=== PATIENT | female | born 1985 | race American Indian/Alaskan Native ===

== ENCOUNTER 2017-02-06 17:44 | Outpatient (CLI) | payer MEDICAID, OTHER ==
[2017-02-06 18:19] VITALS: BP 100/57
[2017-02-06] MEDS ORDERED: LACTATED RINGERS 500 ML IV ONE (18:50)
--- NOTE | 2017-02-06 19:27 | Event Note ---
Date: 02/06/17 (pt arrived via EMS with c/o bleeding) Pt is a Pt had c/s with first delivery due to bleeding. There was only a small dot of old blood on a tissue pt had put on when EMS arrived at her home. US done EDC 05-20-17 No evidence of abruption. Pt will be d/c home with reactive strip. No further evidence of bleeding Pt given list of providers She is aware we do not offer Pt encouraged to be on pelvic rest, hydration, she will come back to Triage with any further bleeding
--- NOTE | 2017-02-07 10:32 | Ultrasound Report ---
COMPLETE OB ULTRASOUND: Second trimester bleeding. Gestation: [place] Position: Cephalic FABRICIO = 21.1 cm Placenta: Anterior Placental Grade: 1 Heart Rate: 118 BPM Cervical length: 4.1 cm (Normal > 3 cm) X It is too early for a anatomical survey The following are not demonstrated due to maternal body habitus or lie: BPD: 6.2 cm = 25 w 0 d HC: 22.9 cm = 25 w 0 d AC: 21.8 cm = 26 w 2 d FL: 4.6 cm = 25 w 0 d HC/AC Ratio: 1.05 Cephalic Index: 82.1 Estimated Weight: 836 grams Clinical age = 22 w 3 d EDC: 06/09/17 US Gest. Age = 25 w 2 d EDC: 05/20/17 Impression: No gestational abnormalities noted. No evidence of placental abnormality.
== END 2017-02-06 19:45 | disposition home or self-care (01) ==
LOC: TRG 17:44
PROVIDERS: ATTEND Obstetrics & Gynecology
DX: O99.332 Smoking (tobacco) complicating pregnancy, second trimester (principal); O46.92 Antepartum hemorrhage, unspecified, second trimester; O47.02 False labor before 37 completed weeks of gestation, second trimester; Z3A.22 22 weeks gestation of pregnancy
CPT/HCPCS: 59025; 76816

== ENCOUNTER 2018-02-24 16:57 | Emergency (ER) | payer OTHER ==
[2018-02-24] MEDS ORDERED: NACL 0.9% 1000 ML 1,000 ML IV ONE ×2 (18:02→19:15)
--- NOTE | 2018-02-24 18:08 | Emergency Department Report ---
ED HPI - General Chief complaint: Vaginal Bleeding Stated complaint: POSS MISCARRIAGE Time Seen by Provider: 02/24/18 17:33 Source: patient, EMS Mode of arrival: Stretcher Limitations: No Limitations - History of Present Illness Initial comments: 32-year-old female with no significant past medical history presents to the hospital complaining of miscarriage. LMP 01/24/2018 and patient did not know she was . Today she developed vaginal bleeding and passed a fetus and blood clots. She continues to have suprapubic cramping moderate to severe abdominal pain. This is now her eighth , she has 6 living children, and one child that after premature six-month delivery one month after last year. - Related Data Previous Rx's Medication Instructions Recorded Last Taken Type Acetaminophen/Codeine [Tylenol #3] 1 tab PO Q8H PRN #15 tablet 05/01/15 Unknown Rx Ibuprofen [Motrin] 800 mg PO Q8HR PRN #21 tablet 05/01/15 Unknown Rx Penicillin Vk [Veetids TAB] 500 mg PO QID #40 tablet 05/01/15 Unknown Rx Sulfamethoxazole/Trimethoprim 1 each PO BID #14 tablet 02/25/18 Unknown Rx [Bactrim DS TAB] Allergies Allergy/AdvReac Type Severity Reaction Status Date / Time No Known Allergies Allergy Verified 05/01/15 11:56 ED Review of Systems ROS: Stated complaint: POSS MISCARRIAGE Other details as noted in HPI Comment: All other systems reviewed and negative ED Past Medical Hx - Past Medical History Hx Hypertension: No Hx Diabetes: No Hx Deep Vein Thrombosis: No Hx Renal Disease: No Hx Sickle Cell Disease: No Hx Seizures: No Hx Asthma: No Hx HIV: No - Surgical History Additional Surgical History: 2003 - Social History Smoking Status: Former Smoker Substance Use Type: None - Medications Home Medications: Home Medications Medication Instructions Recorded Confirmed Last Taken Type Acetaminophen/Codeine [Tylenol #3] 1 tab PO Q8H PRN #15 tablet 05/01/15 Unknown Rx Ibuprofen [Motrin] 800 mg PO Q8HR PRN #21 tablet 05/01/15 05/28/15 Unknown Rx Penicillin Vk [Veetids TAB] 500 mg PO QID #40 tablet 05/01/15 05/28/15 Unknown Rx Sulfamethoxazole/Trimethoprim 1 each PO BID #14 tablet 02/25/18 Unknown Rx [Bactrim DS TAB] ED Physical Exam - General Limitations: No Limitations - Other Other exam information: General: No limitations, patient is alert in no acute distress Head exam: Atraumatic, normocephalic Eyes exam: Normal appearance ENT: Moist mucous membrane, normal oropharynx Neck exam: Normal inspection, full range of motion Respiratory exam: Clear to auscultation bilateral, no wheezes, rales, crackles Cardiovascular: Normal rate and rhythm, normal heart sounds Abdomen: Soft, nondistended, suprapubic tenderness, with normal bowel sounds, no rebound, or guarding : Blood clots and moved from vaginal vault with no significant residual bleeding from cervical os. There is an umbilical cord exiting the cervix into the vaginal canal. Extremity: Full range of motion normal inspection no deformity Back: Normal Inspection, full range of motion, no tenderness Neurologic: Alert, oriented x3, cranial nerves intact, no motor or sensory deficit Psychiatric: normal affect, normal mood Skin: Warm, dry, intact ED Course Vital Signs 02/24/18 02/24/18 02/24/18 17:22 18:00 18:10 Temperature 98.0 F Pulse Rate 96 H Respiratory 20 16 Rate Blood Pressure 113/69 100/58 O2 Sat by Pulse 98 98 99 Oximetry 02/24/18 02/24/18 02/24/18 18:20 18:40 19:00 Temperature Pulse Rate 82 80 82 Respiratory 13 15 25 H Rate Blood Pressure 91/54 111/50 94/57 O2 Sat by Pulse 95 100 100 Oximetry 02/24/18 02/24/18 02/24/18 20:16 20:20 20:40 Temperature Pulse Rate 92 H 76 Respiratory 15 17 Rate Blood Pressure 94/57 98/60 93/47 O2 Sat by Pulse 99 97 97 Oximetry 02/24/18 02/24/18 02/24/18 21:00 21:15 21:20 Temperature Pulse Rate 96 H 75 Respiratory 20 18 13 Rate Blood Pressure 94/57 93/50 O2 Sat by Pulse 98 96 Oximetry 02/24/18 02/24/18 02/24/18 21:40 22:00 22:20 Temperature Pulse Rate 77 78 70 Respiratory 9 L 15 20 Rate Blood Pressure 90/50 103/66 103/66 O2 Sat by Pulse 99 99 98 Oximetry 02/24/18 02/24/18 22:40 23:00 Temperature Pulse Rate 81 Respiratory 23 Rate Blood Pressure 103/35 103/35 O2 Sat by Pulse 97 Oximetry - Reevaluation(s) Reevaluation #1: 02/24/18 19:15 Hypotension improves with normal saline bolus. Morphine and Zofran ordered. Additional normal saline ordered - Consultations Consultation #1: 02/24/18 19:28 newspaper vendor provider August with [facility] changer fixer paged, awaiting call back 02/24/18 19:[address] ayala after us to discuss if d and c is necessary ED Medical Decision Making - Lab Data Result diagrams: 02/24/18 17:59 Lab Results 02/24/18 02/24/18 02/24/18 Range/Units 17:59 17:59 18:02 WBC 11.0 (4.5-11.0) K/mm3 RBC 3.58 L (3.65-5.03) M/mm3 Hgb 10.5 (10.1-14.3) gm/dl Hct 29.6 L (30.3-42.9) % MCV 83 (79-97) fl MCH 29 (28-32) pg MCHC 36 H (30-34) % RDW 14.8 (13.2-15.2) % Plt Count 269 (140-440) K/mm3 Lymph % (Auto) 23.2 (13.4-35.0) % Pine % (Auto) 5.6 (0.0-7.3) % Eos % (Auto) 2.1 (0.0-4.3) % Baso % (Auto) 0.5 (0.0-1.8) % Lymph # 2.5 (1.2-5.4) K/mm3 Pine # 0.6 (0.0-0.8) K/mm3 Eos # 0.2 (0.0-0.4) K/mm3 Baso # 0.1 (0.0-0.1) K/mm3 Seg Neutrophils % 68.6 (40.0-70.0) % Seg Neutrophils # 7.5 (1.8-7.7) K/mm3 HCG, Quant 22721 H (0-4) mIU/mL Blood Type B POSITIVE Antibody Screen Negative - Radiology Data Radiology results: report reviewed FINAL REPORT EXAM: US OB lt; = 14 WEEKS FETUS HISTORY: vag bleeding + home preg test TECHNIQUE: Real-time sonography was performed of the pelvis transabdominally and endovaginally. Images are submitted for interpretation. PRIORS: None. FINDINGS: The uterus appears normal measuring 14.1 x 9.1 x 10.6 cm. There is no evidence of intrauterine gestation. The endometrial stripe appears normal measuring 6 mm. Small nabothian cyst is noted in the cervix. The right ovary appears normal measuring 2.4 x 1.4 x 1.9 cm. The left adnexa was scanned. The left ovary was not seen. There are no abnormal adnexal masses. There is no free pelvic fluid. IMPRESSION: 1. An intrauterine has not been confirmed and ectopic has not been excluded. Close clinical follow-up, serial quantitative beta HCG levels and follow-up ultrasound recommended. 2. The left ovary was not seen. FINAL REPORT EXAM: US OB TRANSVAGINAL HISTORY: vag bleeding + home preg test TECHNIQUE: Real-time sonography was performed of the pelvis transabdominally and endovaginally. Images are submitted for interpretation. PRIORS: None. FINDINGS: The uterus appears normal measuring 14.1 x 9.1 x 10.6 cm. There is no evidence of intrauterine gestation. The endometrial stripe appears normal measuring 6 mm. Small nabothian cyst is noted in the cervix. The right ovary appears normal measuring 2.4 x 1.4 x 1.9 cm. The left adnexa was scanned. The left ovary was not seen. There are no abnormal adnexal masses. There is no free pelvic fluid. IMPRESSION: 1. An intrauterine has not been confirmed and ectopic has not been excluded. Close clinical follow-up, serial quantitative beta HCG levels and follow-up ultrasound recommended. 2. The left ovary was not seen. - Medical Decision Making Miscarriage with passage of fetus Rh+ program unnecessary I attempted to discuss case with city constable [facility]IVET PASSER physician with ultrasound results pending. I was connected with nurse practitioner/nipple threader who stated that case need to be discussed with city constable , Dr. Ayala According to answering service they did not have a contact number for Dr. Ayala. Patient was signed out to Dr. Gavin to contact city constable physician regarding patient management after ultrasound report results - Differential Diagnosis miscarriage, ectopic, anemia, Critical Care Time: No Critical care attestation.: If time is entered above; I have spent that time in minutes in the direct care of this critically ill patient, excluding procedure time. ED Disposition Clinical Impression: Incomplete miscarriage Disposition: - LEFT AGAINST MED ADVICE Is pt being admited?: No Condition: Stable Instructions: Spontaneous Miscarriage (ED) Referrals: ALICIA LIMON MD [Staff Physician] - [facility] Forms: AMA Form Time of Disposition: 20:00 (s/o to Dr gavin)
[2018-02-24 18:24] LABS: Basophils # (Auto) 0.1 K/mm3 (0.0-0.1); Basophils % (Auto) 0.5 % (0.0-1.8); Eosinophils # (Auto) 0.2 K/mm3 (0.0-0.4); Eosinophils % (Auto) 2.1 % (0.0-4.3); Hematocrit 29.6 % (30.3-42.9); Hemoglobin 10.5 gm/dl (10.1-14.3); Lymphocytes # (Auto) 2.5 K/mm3 (1.2-5.4); Lymphocytes % (Auto) 23.2 % (13.4-35.0); Mean Corpuscular HGB Conc 36 % (30-34); Mean Corpuscular Hemoglobin 29 pg (28-32); Mean Corpuscular Volume 83 fl (79-97); Monocytes # (Auto) 0.6 K/mm3 (0.0-0.8); Monocytes % (Auto) 5.6 % (0.0-7.3); Platelet Count 269 K/mm3 (140-440); Red Blood Count 3.58 M/mm3 (3.65-5.03); Red Cell Distribution Width 14.8 % (13.2-15.2)
[2018-02-24] MEDS ORDERED: ZOFRAN IV ONE (19:15)
[2018-02-24] MEDS ORDERED: MORPHINE IV ONE (19:15)
[2018-02-24] MEDS ORDERED: TORADOL IV ONE (21:00)
[2018-02-24] MEDS ORDERED: TORADOL ONE (21:01)
--- NOTE | 2018-02-24 23:14 | Emergency Department Report ---
Blank Doc - Documentation Documentation: Received signout from Dr. Corrales to follow up on OB ultrasound for patient with complete miscarriage. I have contacted A I asked radiology 3 times, he at least have no report. Patient states she has to leave at this time, otherwise she will have no ride home, and she needs to take care of her other children. Patient informed of risks of leaving with medical advice, including retained products of conception, hemorrhage, infection, . Informed patient that we need ultrasound results prior to speaking to the physician on-call, as it is unknown whether she will require D&C versus medication administration for retained products. Patient understands the risks. States she has no one available to watch her children other than her mother who has to be at work soon. Pt states she will return to ED in the morning after she sends her children to school. AMA form signed.
--- NOTE | 2018-02-24 23:22 | Ultrasound Report ---
FINAL REPORT EXAM: US OB < = 14 WEEKS FETUS HISTORY: vag bleeding + home preg test TECHNIQUE: Real-time sonography was performed of the pelvis transabdominally and endovaginally. Images are submitted for interpretation. PRIORS: None. FINDINGS: The uterus appears normal measuring 14.1 x 9.1 x 10.6 cm. There is no evidence of intrauterine gestation. The endometrial stripe appears normal measuring 6 mm. Small nabothian cyst is noted in the cervix. The right ovary appears normal measuring 2.4 x 1.4 x 1.9 cm. The left adnexa was scanned. The left ovary was not seen. There are no abnormal adnexal masses. There is no free pelvic fluid. IMPRESSION: 1. An intrauterine has not been confirmed and ectopic has not been excluded. Close clinical follow-up, serial quantitative beta HCG levels and follow-up ultrasound recommended. 2. The left ovary was not seen.
[2018-02-25 00:23] VITALS: BP 103/35
== END 2018-02-24 23:10 | disposition left against medical advice (07) ==
LOC: ED 16:57
DX: O03.4 Incomplete spontaneous abortion without complication (principal); Z87.891 Personal history of nicotine dependence; Z3A.00 Weeks of gestation of pregnancy not specified
CPT/HCPCS: 36415; 76801; 76817; 84702; 85025; 86850; 86900; 86901; 88305; 96374; 99284; J1885; J7030

== ENCOUNTER 2018-02-25 08:08 | Emergency (ER) | payer OTHER ==
[2018-02-25 08:35] VITALS: BP 106/53
[2018-02-25 08:50] LABS: Basophils % (Auto) 0.3 % (0.0-1.8); Eosinophils # (Auto) 0.2 K/mm3 (0.0-0.4); Eosinophils % (Auto) 2.1 % (0.0-4.3); Hematocrit 29.1 % (30.3-42.9); Hemoglobin 9.7 gm/dl (10.1-14.3); Lymphocytes # (Auto) 2.6 K/mm3 (1.2-5.4); Lymphocytes % (Auto) 22.1 % (13.4-35.0); Mean Corpuscular HGB Conc 33 % (30-34); Mean Corpuscular Hemoglobin 28 pg (28-32); Mean Corpuscular Volume 84 fl (79-97); Monocytes # (Auto) 0.5 K/mm3 (0.0-0.8); Monocytes % (Auto) 4.7 % (0.0-7.3); Platelet Count 253 K/mm3 (140-440); Red Blood Count 3.46 M/mm3 (3.65-5.03); Red Cell Distribution Width 15.2 % (13.2-15.2)
--- NOTE | 2018-02-25 10:24 | Emergency Department Report ---
ED HPI - General Chief complaint: Abdominal Pain Stated complaint: MISCARRIED/FOLLOW UP Time Seen by Provider: 02/25/18 09:18 Source: patient Mode of arrival: Ambulatory Limitations: No Limitations - History of Present Illness Initial comments: This is a 32-year-old female that presents with miscarriage. Patient stated she was seen yesterday and was diagnosed with a miscarriage and left AGAINST MEDICAL ADVICE. Patient stated she was diagnosed with "umbilical cord in the vagina canal". Patient left prior to getting results of ultrasound. Patient currently denies any vaginal bleeding. Patient denies any abdominal pain or tenderness. Patient denies any fever, chills, nausea, vomiting, chest pain, shortness of breath, headache or stiff neck. Patient stated this is her eighth and has 6 living children. Patient denies any drug allergies. MD Complaint: vaginal bleeding Radiation: none Severity scale (0 -10): 0 Consistency: constant Improves with: none Worsens with: none Associated symptoms: vaginal bleeding. denies: nausea/vomiting, vaginal discharge, abdominal pain, dysuria, headache, vision changes, malaise, dysparuenia, rash, seizure, shortness of breath, syncope, weakness Vaginal bleeding: light Pre-nicolas care: none - Related Data Previous Rx's Medication Instructions Recorded Last Taken Type Acetaminophen/Codeine [Tylenol #3] 1 tab PO Q8H PRN #15 tablet 05/01/15 Unknown Rx Ibuprofen [Motrin] 800 mg PO Q8HR PRN #21 tablet 05/01/15 Unknown Rx Penicillin Vk [Veetids TAB] 500 mg PO QID #40 tablet 05/01/15 Unknown Rx Sulfamethoxazole/Trimethoprim 1 each PO BID #14 tablet 02/25/18 Unknown Rx [Bactrim DS TAB] Allergies Allergy/AdvReac Type Severity Reaction Status Date / Time No Known Allergies Allergy Verified 05/01/15 11:56 ED Review of Systems ROS: Stated complaint: MISCARRIED/FOLLOW UP Other details as noted in HPI Constitutional: denies: chills, fever Eyes: denies: eye pain, eye discharge, vision change ENT: denies: ear pain, throat pain Respiratory: denies: cough, shortness of breath, wheezing Cardiovascular: denies: chest pain, palpitations Endocrine: no symptoms reported Gastrointestinal: denies: abdominal pain, nausea, diarrhea Genitourinary: abnormal menses. denies: urgency, dysuria, discharge Musculoskeletal: denies: back pain, joint swelling, arthralgia Skin: denies: rash, lesions Neurological: denies: headache, weakness, paresthesias Psychiatric: denies: anxiety, depression Hematological/Lymphatic: denies: easy bleeding, easy bruising ED Past Medical Hx - Past Medical History Previous Medical History?: No Hx Hypertension: No Hx Diabetes: No Hx Deep Vein Thrombosis: No Hx Renal Disease: No Hx Sickle Cell Disease: No Hx Seizures: No Hx Asthma: No Hx HIV: No - Surgical History Past Surgical History?: Yes Additional Surgical History: 2003 - Social History Smoking Status: Current Every Day Smoker Substance Use Type: None - Medications Home Medications: Home Medications Medication Instructions Recorded Confirmed Last Taken Type Acetaminophen/Codeine [Tylenol #3] 1 tab PO Q8H PRN #15 tablet 05/01/15 Unknown Rx Ibuprofen [Motrin] 800 mg PO Q8HR PRN #21 tablet 05/01/15 05/28/15 Unknown Rx Penicillin Vk [Veetids TAB] 500 mg PO QID #40 tablet 05/01/15 05/28/15 Unknown Rx Sulfamethoxazole/Trimethoprim 1 each PO BID #14 tablet 02/25/18 Unknown Rx [Bactrim DS TAB] ED Physical Exam - General Limitations: No Limitations General appearance: alert, in no apparent distress - Head Head exam: Present: atraumatic, normocephalic - Eye Eye exam: Present: normal appearance - ENT ENT exam: Present: mucous membranes moist - Neck Neck exam: Present: normal inspection - Respiratory Respiratory exam: Present: normal lung sounds bilaterally. Absent: respiratory distress - Cardiovascular Cardiovascular Exam: Present: regular rate, normal rhythm. Absent: systolic murmur, diastolic murmur, rubs, gallop - GI/Abdominal GI/Abdominal exam: Present: soft, normal bowel sounds - Extremities Exam Extremities exam: Present: normal inspection - Back Exam Back exam: Present: normal inspection - Neurological Exam Neurological exam: Present: alert, oriented X3 - Psychiatric Psychiatric exam: Present: normal affect, normal mood - Skin Skin exam: Present: warm, dry, intact, normal color. Absent: rash ED Course Vital Signs 02/25/18 08:30 Temperature 98.7 F Pulse Rate 76 Respiratory 18 Rate Blood Pressure 106/53 O2 Sat by Pulse 100 Oximetry - Reevaluation(s) Reevaluation #1: 02/25/18 10:23 Patient is speaking in full sentences with no signs of distress. - Consultations Consultation #1: 02/25/18 10:23 Patient has been consulted with Dr. Carl ([facility]) about patient history, physical exam, and labs/US report and examined patient and agrees to ED plan of care with discharge to follow-up. ED Medical Decision Making - Lab Data Result diagrams: 02/25/18 08:41 - Medical Decision Making this is a 32-year-old female that presents with mischarge. Patient is stable and was examined by me and Dr. Carl. As per Dr. Carl, she performed a bedside procedure to remove what she believes "umbilical cord" and instructed patient to follow-up in 3-[address] Carl sent product of conception to pathology. US and labs obtained. I will start patient on empirical Bactrim. At time of discharge, the patient does not seem toxic or ill in appearance. No acute signs of distress noted. Patient agrees to discharge treatment plan of care. No further questions noted by the patient. Critical care attestation.: If time is entered above; I have spent that time in minutes in the direct care of this critically ill patient, excluding procedure time. ED Disposition Clinical Impression: Spontaneous miscarriage Disposition: DC-01 TO HOME OR SELFCARE Is pt being admited?: No Does the pt Need Aspirin: No Condition: Stable Instructions: Spontaneous Miscarriage (ED) Additional Instructions: Follow-up with a OBGYN doctor in 3-5 days or if symptoms worsen and continue return to emergency room as soon as possible. Prescriptions: Sulfamethoxazole/Trimethoprim [Bactrim DS TAB] 1 each PO BID #14 tablet Referrals: PRIMARY CARE, [Primary Care Provider] - 3-5 Days DEBORAH CARL MD [Staff Physician] - 3-5 Days [facility] [Provider Group] - 3-5 Days Forms: Work/School Release Form(ED)
--- NOTE | 2018-02-25 11:26 | Event Note ---
Date: 02/25/18 This is a 32-year-old female 8 para 7 who presented to ED yesterday stating she passed an approximately 3 month old fetus at home. Patient left in the middle of her assessment and presents today stating her assessment needs to be completed. She was told that the umbilical cord is in the vagina. She has no further complaints except some occasional cramping. On exam no bleeding was noted. Tissue was protruding from the cervix that was removed and sent to pathology. No bleeding was noted cervix appeared closed. Labs from yesterday as well as today and the ultrasound from yesterday was reviewed. Patient is stable will allow home with follow-up in our office in 2 days to follow her quantitative hCG levels. Will rule out any potential remaining tissue passed spontaneously. If levels continue to rise or any bleeding or pain occurs will then consider D&C. Plan of care was excessively discussed patient. Questions were encouraged and answered, patient voiced understanding.
[2018-02-25 15:57] LABS: Bacteria,Urine 1+ /HPF (Negative); Bilirubin,Urine NEG (Negative); Blood,Urine NEG (Negative); Color,Urine Yellow (Yellow); Mucus,Urine FEW /HPF; Protein,Urine <15 mg/dL mg/dL (Negative); Urobilinogen,Urine < 2.0 mg/dL (<2.0)
== END 2018-02-25 11:45 | disposition home or self-care (01) ==
LOC: ED 08:08
DX: O03.9 Complete or unspecified spontaneous abortion without complication (principal); F17.200 Nicotine dependence, unspecified, uncomplicated; Z3A.00 Weeks of gestation of pregnancy not specified
CPT/HCPCS: 36415; 81001; 84702; 85025; 88305; 99283

== ENCOUNTER 2018-03-06 18:00 | Observation (INO) | payer OTHER ==
[2018-03-06] MEDS ORDERED: NACL 0.9% 1000 ML 1,000 ML IV ONE ×2 (18:25→19:43)
[2018-03-06 19:09] LABS: Basophils % (Auto) 0.5 % (0.0-1.8); Eosinophils # (Auto) 0.1 K/mm3 (0.0-0.4); Eosinophils % (Auto) 1.2 % (0.0-4.3); Hematocrit 22.9 % (30.3-42.9); Hemoglobin 7.7 gm/dl (10.1-14.3); Lymphocytes % (Auto) 20.1 % (13.4-35.0); Mean Corpuscular HGB Conc 34 % (30-34); Mean Corpuscular Hemoglobin 28 pg (28-32); Mean Corpuscular Volume 83 fl (79-97); Monocytes # (Auto) 0.8 K/mm3 (0.0-0.8); Monocytes % (Auto) 7.9 % (0.0-7.3); Platelet Count 362 K/mm3 (140-440); Red Blood Count 2.76 M/mm3 (3.65-5.03); Red Cell Distribution Width 14.3 % (13.2-15.2)
[2018-03-06] MEDS ORDERED: MORPHINE ONE (19:12)
[2018-03-06] MEDS ORDERED: MORPHINE IV ONE (19:13)
[2018-03-06 19:20] LABS: BUN/Creatinine Ratio 18; Blood Urea Nitrogen 9 mg/dL (7-17); Calcium 7.8 mg/dL (8.4-10.2); Hemolysis Index 1
--- NOTE | 2018-03-06 19:34 | Emergency Department Report ---
ED HPI - General Chief complaint: Vaginal Bleeding Stated complaint: VAGINAL BLEEDING Time Seen by Provider: 03/06/18 18:18 Source: patient, EMS Mode of arrival: Stretcher Limitations: No Limitations - History of Present Illness Initial comments: Patient is a 32-year-old female who is having heavy vaginal bleeding. Patient was seen here on 02/24/2018 after having a miscarriage at home. Patient passed a fetus at home brought in and was sent to pathology. Patient had ultrasound done at that time that showed no IUP and her Quant was 36 ,000. Patient returned on February 25 quad had actually elevated to 38,000 and patient was seen by CLINICAL DOCUMENTATION IMPROVEMENT SPECIALIST at that time. Patient was not bleeding at the time therefore the decision to do it and additional ultrasound or D&C was held. Patient was to follow with Dr. Carl's office but did not. Patient states on February 27 she started having return of some vaginal bleeding. Patient states that the bleeding was as heavy as normal. However the bleeding persisted and become heavier and heavier to forward today she is passing large clots of blood. Patient states she has some mild lightheadedness. Patient denies any fevers chills nausea vomiting. Patient does have some 6 out of 10 suprapubic crampiness. - Related Data Previous Rx's Medication Instructions Recorded Last Taken Type Acetaminophen/Codeine [Tylenol #3] 1 tab PO Q8H PRN #15 tablet 05/01/15 Unknown Rx Penicillin Vk [Veetids TAB] 500 mg PO QID #40 tablet 05/01/15 Unknown Rx Sulfamethoxazole/Trimethoprim 1 each PO BID #14 tablet 02/25/18 Unknown Rx [Bactrim DS TAB] Ibuprofen [Motrin 800 MG tab] 800 mg PO Q8HR PRN #21 tablet 03/06/18 Unknown Rx Allergies Allergy/AdvReac Type Severity Reaction Status Date / Time No Known Allergies Allergy Verified 05/01/15 11:56 ED Review of Systems ROS: Stated complaint: VAGINAL BLEEDING Other details as noted in HPI Comment: All other systems reviewed and negative ED Past Medical Hx - Past Medical History Hx Hypertension: No Hx Diabetes: No Hx Deep Vein Thrombosis: No Hx Renal Disease: No Hx Sickle Cell Disease: No Hx Seizures: No Hx Asthma: No Hx HIV: No - Surgical History Additional Surgical History: 2003 - Social History Smoking Status: Current Every Day Smoker Substance Use Type: Marijuana - Medications Home Medications: Home Medications Medication Instructions Recorded Confirmed Last Taken Type Acetaminophen/Codeine [Tylenol #3] 1 tab PO Q8H PRN #15 tablet 05/01/15 Unknown Rx Penicillin Vk [Veetids TAB] 500 mg PO QID #40 tablet 05/01/15 05/28/15 Unknown Rx Sulfamethoxazole/Trimethoprim 1 each PO BID #14 tablet 02/25/18 Unknown Rx [Bactrim DS TAB] Ibuprofen [Motrin 800 MG tab] 800 mg PO Q8HR PRN #21 tablet 03/06/18 Unknown Rx ED Physical Exam - General Limitations: No Limitations General appearance: alert, in no apparent distress - Head Head exam: Present: atraumatic, normocephalic - Eye Eye exam: Present: normal appearance - ENT ENT exam: Present: mucous membranes moist - Neck Neck exam: Present: normal inspection - Respiratory Respiratory exam: Present: normal lung sounds bilaterally. Absent: respiratory distress, wheezes, rales - Cardiovascular Cardiovascular Exam: Present: regular rate, normal rhythm. Absent: systolic murmur, diastolic murmur, rubs, gallop - GI/Abdominal GI/Abdominal exam: Present: soft, normal bowel sounds - External exam: Present: normal external exam Bi-manual exam: Present: other (patient has a large clot within the vaginal vault. Patient does have some tenderness to the os which does seem to be opened.) - Extremities Exam Extremities exam: Present: normal inspection - Back Exam Back exam: Present: normal inspection - Neurological Exam Neurological exam: Present: alert, oriented X3 - Psychiatric Psychiatric exam: Present: normal affect, normal mood - Skin Skin exam: Present: warm, dry, intact, normal color. Absent: rash ED Course Vital Signs 03/06/18 03/06/18 03/06/18 18:21 18:23 18:24 Temperature Pulse Rate 89 Respiratory 12 18 Rate Blood Pressure 103/55 O2 Sat by Pulse Oximetry 03/06/18 03/06/18 03/06/18 18:25 18:26 18:28 Temperature Pulse Rate Respiratory Rate Blood Pressure 103/55 103/55 O2 Sat by Pulse 100 98 100 Oximetry 03/06/18 03/06/18 03/06/18 18:30 18:32 18:34 Temperature 98.8 F Pulse Rate Respiratory Rate Blood Pressure 107/62 107/62 O2 Sat by Pulse 100 99 Oximetry 03/06/18 03/06/18 03/06/18 18:40 19:10 19:30 Temperature Pulse Rate 91 H 97 H Respiratory 18 26 H Rate Blood Pressure 107/62 116/56 107/66 O2 Sat by Pulse 100 100 100 Oximetry 03/06/18 03/06/18 03/06/18 20:00 20:30 21:00 Temperature Pulse Rate 96 H 96 H 88 Respiratory 15 14 14 Rate Blood Pressure 92/49 93/54 97/47 O2 Sat by Pulse 99 100 100 Oximetry 03/06/18 03/06/18 03/06/18 21:30 21:55 22:00 Temperature Pulse Rate 88 86 82 Respiratory 17 20 16 Rate Blood Pressure 80/34 85/43 103/54 O2 Sat by Pulse 100 100 100 Oximetry 03/06/18 03/06/18 03/06/18 22:06 22:10 22:20 Temperature Pulse Rate 94 H 87 91 H Respiratory 13 15 13 Rate Blood Pressure 103/54 85/43 85/43 O2 Sat by Pulse 100 100 98 Oximetry 03/06/18 22:30 Temperature Pulse Rate 80 Respiratory 23 Rate Blood Pressure 101/39 O2 Sat by Pulse 100 Oximetry ED Medical Decision Making - Lab Data Result diagrams: 03/07/18 08:41 03/06/18 18:51 Lab Results 03/06/18 03/06/18 03/06/18 Range/Units 18:51 18:51 18:51 WBC 10.0 (4.5-11.0) K/mm3 RBC 2.76 L (3.65-5.03) M/mm3 Hgb 7.7 L (10.1-14.3) gm/dl Hct 22.9 L (30.3-42.9) % MCV 83 (79-97) fl MCH 28 (28-32) pg MCHC 34 (30-34) % RDW 14.3 (13.2-15.2) % Plt Count 362 (140-440) K/mm3 Lymph % (Auto) 20.1 (13.4-35.0) % [place] % (Auto) 7.9 H (0.0-7.3) % Eos % (Auto) 1.2 (0.0-4.3) % Baso % (Auto) 0.5 (0.0-1.8) % Lymph # 2.0 (1.2-5.4) K/mm3 [place] # 0.8 (0.0-0.8) K/mm3 Eos # 0.1 (0.0-0.4) K/mm3 Baso # 0.0 (0.0-0.1) K/mm3 Seg Neutrophils % 70.3 H (40.0-70.0) % Seg Neutrophils # 7.0 (1.8-7.7) K/mm3 Sodium 138 (137-145) mmol/L Potassium 3.8 (3.6-5.0) mmol/L Chloride 106.1 (98-107) mmol/L Carbon Dioxide 22 (22-30) mmol/L Anion Gap 14 mmol/L BUN 9 (7-17) mg/dL Creatinine 0.5 L (0.7-1.2) mg/dL Estimated GFR > 60 ml/min BUN/Creatinine Ratio 18 % Glucose 108 H (65-100) mg/dL Calcium 7.8 L (8.4-10.2) mg/dL HCG, Quant 3301 H (0-4) mIU/mL - Medical Decision Making Patient was started on aggressive IV fluid resuscitation. Patient's blood pressure did improve after IV fluids. Patient was given 2 of morphine for pain. Patient's Quant has significantly dropped since her initial clots and is in the 3000 range as opposed to be 30,000 range. Patient does appear to potentially need a D&C at this time. Dr. Gómez TURNER MACHINE OPERATOR has been consulted and will see the patient at bedside. Critical Care Time: Yes (30) Critical care attestation.: If time is entered above; I have spent that time in minutes in the direct care of this critically ill patient, excluding procedure time. ED Disposition Clinical Impression: Retained products of conception, Incomplete miscarriage, Anemia Disposition: OP ADMIT IP TO THIS HOSP Is pt being admited?: Yes Condition: Stable
[2018-03-06] MEDS ORDERED: MORPHINE IM ONE (20:09)
--- NOTE | 2018-03-06 22:33 | Anesthesia Consultation ---
Anesthesia Consult and Med Hx Date of service: 03/06/18 - Airway Anesthetic Teeth Evaluation: Good ROM Head & Neck: Adequate Mental/Hyoid Distance: Adequate Mallampati Class: Class II Intubation Access Assessment: Probably Good - Pre-Operative Health Status ASA Pre-Surgery Classification: ASA2 Proposed Anesthetic Plan: General - Pulmonary Hx Smoking: Yes Hx Asthma: No - Cardiovascular System Hx Hypertension: No - Central Nervous System Hx Seizures: No Hx Psychiatric Problems: No - Endocrine Hx Renal Disease: No Hx Hypothyroidism: No Hx Hyperthyroidism: No - Hematic Hx Anemia: No Hx Sickle Cell Disease: No - Other Systems Hx Alcohol Use: No Hx Substance Use: Yes (marijuana)
--- NOTE | 2018-03-06 22:48 | Anesthesia Day of Surgery ---
Anesthesia Day of Surgery - Day of Surgery Patient Examined: Yes Patient H&P Reviewed: Yes Patient is NPO: Yes
[2018-03-06] MEDS ORDERED: DIPRIVAN 10 MG/ML IV ONE (22:53)
[2018-03-06] MEDS ORDERED: DILAUDID ONE (22:53)
[2018-03-06] MEDS ORDERED: XYLOCAINE MPF 2% ONE (22:54)
[2018-03-06] MEDS ORDERED: NACL 0.9% 1000 ML 1,000 ML ONE (23:09)
[2018-03-06] MEDS ORDERED: ANCEF ONE ×2 (23:11)
[2018-03-06] MEDS ORDERED: ZOFRAN ONE (23:27)
--- NOTE | 2018-03-06 23:40 | Short Stay Summary ---
Short Stay Documentation Date of service: 03/06/18 Narrative H&P: Patient is a 32 year old who presents with complaint of vaginal bleeding and cramping. The patient presented to the emergency department approximately 10 days ago reporting that she had passed all of her at home. However , the pathology report revealed only the umbilical cord and some portions of the placenta. She was supposed to follow-up with Dr. Carl to follow her beta is however she failed to do so reported to the ED again on this evening with the complaint of vaginal bleeding and cramping. Her beta hCG was found to be 3300 when she presented this evening. - History Principal diagnosis: Incomplete Past Medical History: No medical history Social history: single - Allergies and Medications Current Medications: Allergies No Known Allergies Allergy (Verified 05/01/15 11:56) Home Medications Medication Instructions Recorded Confirmed Last Taken Type Acetaminophen/Codeine [Tylenol #3] 1 tab PO Q8H PRN #15 tablet 05/01/15 Unknown Rx Ibuprofen [Motrin] 800 mg PO Q8HR PRN #21 tablet 05/01/15 05/28/15 Unknown Rx Penicillin Vk [Veetids TAB] 500 mg PO QID #40 tablet 05/01/15 05/28/15 Unknown Rx Sulfamethoxazole/Trimethoprim 1 each PO BID #14 tablet 02/25/18 Unknown Rx [Bactrim DS TAB] - Physical exam General appearance: mild distress Lungs: Clear to auscultation Heart: Normal S1, Normal S2, Other Gastrointestinal: normal, normoactive bowel sounds Female Genitourinary: deferred Rectal Exam: deferred - Brief post op/procedure progress note Date of procedure: 03/06/18 Pre-op diagnosis: Incomplete Post-op diagnosis: same Procedure: Suction D&C Anesthesia: GETA Findings: A large amount of clot was found to be expressed from the vaginal vault as well as a large amount of dense-appearing tissue. The uterus appeared to have some irregularities which may be consistent with a fibroid uterus. Surgeon: DENNIS BHARDWAJ Estimated blood loss: other (300) Pathology: list (products of conception) Specimen disposition: to lab Condition: stable - Hospital course Hospital course: unremarkable - Disposition Condition at discharge: Good Disposition: DC- TO HOME OR SELFCARE Short Stay Discharge Plan Activity: advance as tolerated Weight Bearing Status: Weight Bear as Tolerated Diet: regular Additional Instructions: Nothing in the vagina Follow up with: PRIMARY CARE, [Primary Care Provider] - 3-5 Days Prescriptions: Ibuprofen [Motrin 800 MG tab] 800 mg PO Q8HR PRN #21 tablet PRN Reason: Pain
[2018-03-06] MEDS ORDERED: LACTATED RINGERS 1,000 ML ONE (23:41)
--- NOTE | 2018-03-06 23:49 | Operative Report ---
Operative Report Operative Report: Preoperative diagnoses: Missed Postoperative diagnosis: Same Procedure: D and E Surgeon: Dee Hernandez M.D. Anesthesia: MAC EBL: 300 mL Urine output: 100 mL clear Complications: None Specimens: Products of conception Indication: Ms. Rose is a 32-year-old 8 female presented to the emergency department on 02/24 complaining of having passed a fetus at home. She was seen by Dr. Carl was advised to follow up in the office however that did not happen. She began bleeding 2 days prior to admission this time and when presented to the ER was found to have heavy bleeding along with cramping and a decrease in her hemoglobin from 9.7-7.7. The decision was then made to proceed with a dilation and evacuation of the uterus. Procedure: Patient was taken to the OR with IV running and in place. She was properly identified as herself. She was given adequate anesthesia. She was then placed in the dorsal lithotomy position and prepped and draped in normal sterile fashion. Attention was turned to the patient's vagina. Her bladder was then drained of approximately 100 mL of clear yellow urine. A bivalve speculum was placed the patient's vagina. A large piece of tissue exuded from the cervix once the speculum was placed into the vagina. Cervix was visualized and grasped with a single-tooth tenaculum. The cervix was found to be fully dilated. A #14 suction curette was inserted into the patient's uterus at the level of the fundus. It was then attached to the suction machine and the curettage was performed removing products of conception. At one point the curet was removed and a large banjo curet was introduced into the uterus to further retrieve any additional products. Following this the suction curette was reintroduced and more tissue was obtained. It was excellent hemostasis noted at the end of this portion of the procedure. At this point all instruments were removed from the patient's vagina. She was then awakened and taken to recovery in stable condition. She tolerated the procedure well
[2018-03-07] LABS: Hematocrit 16.8 % (30.3-42.9); Hemoglobin 5.7 gm/dl (10.1-14.3)
[2018-03-07] MEDS ORDERED: NACL 0.9% 500 ML 500 ML IV ONE (00:14)
[2018-03-07] MEDS ORDERED: D5/0.45NS 1,000 ML IV SCH (00:14)
[2018-03-07] MEDS ORDERED: BENADRYL PO PRN (00:14)
[2018-03-07 00:29] LABS: Hematocrit 15.5 % (30.3-42.9); Hemoglobin 5.4 gm/dl (10.1-14.3)
[2018-03-07] MEDS ORDERED: NACL 0.9% 500 ML 500 ML ONE (00:41)
[2018-03-07 06:48] VITALS: BP 102/58
[2018-03-07] MEDS: NORCO 5/325 PO PRN ×2 (08:02→14:34)
[2018-03-07 09:08] LABS: Hematocrit 22.5 % (30.3-42.9); Hemoglobin 7.6 gm/dl (10.1-14.3)
== END 2018-03-07 19:45 | disposition home or self-care (01) ==
LOC: ED 18:00 → IMCU 03-07
PROVIDERS: ADMIT Obstetrics & Gynecology; ATTEND Obstetrics & Gynecology
DX: O02.1 Missed abortion (principal); F17.200 Nicotine dependence, unspecified, uncomplicated; F12.10 Cannabis abuse, uncomplicated
CPT/HCPCS: 36415; 36430; 59820; 80048; 84702; 85014; 85018; 85025; 86850; 86900; 86901; 86920; 88305; 96372; 96374; 96376; 99406; G0378; J0690; J1170; J2270; J2405; J2590; J2704; J7030; J7040; J7120; P9016